=== PATIENT | female | born 1940 | race Caucasian/White ===

== ENCOUNTER → 2019-01-31 | Outpatient (CLI) | payer OTHER | LOC: CAT 11:42 | DX: Z13.6 Encounter for screening for cardiovascular disorders (principal); E78.00 Pure hypercholesterolemia, unspecified; Z82.49 Family history of ischemic heart disease and other diseases of the circulatory system ==

== ENCOUNTER → 2019-02-07 | Outpatient (CLI) | payer MEDICARE ==
[~2019-02-07] VITALS: Ht 190.5 cm; Wt 77.1 kg
[~2019-02-07] MED LIST: AMLODIPINE BESY10 MG PO; ASPIR 8181 MG PO; LISINOPRIL10 MG PO; LOVAZA1000 MG PO; PRAVACHOL40 MG PO; UNICOMPLEX M TA1 TA1 PO; VITAMIN B-12500 MCG PO; VITAMIN D2000 UNIT PO
[2019-02-07 11:41] VITALS: BP 163/73
== END | disposition home or self-care (01) ==
LOC: SPEC 11:02
DX: I70.1 Atherosclerosis of renal artery (principal); I12.9 Hypertensive chronic kidney disease with stage 1 through stage 4 chronic kidney disease, or unspecified chronic kidney disease; N18.9 Chronic kidney disease, unspecified; I73.9 Peripheral vascular disease, unspecified; E78.5 Hyperlipidemia, unspecified; Z79.82 Long term (current) use of aspirin; Z79.891 Long term (current) use of opiate analgesic; Z98.890 Other specified postprocedural states

== ENCOUNTER → 2019-12-30 | Outpatient (CLI) | payer MEDICARE | LOC: SJCVCIMAG 09:24 | DX: I49.9 Cardiac arrhythmia, unspecified (principal); N28.9 Disorder of kidney and ureter, unspecified; I70.1 Atherosclerosis of renal artery; R93.1 Abnormal findings on diagnostic imaging of heart and coronary circulation ==

== ENCOUNTER → 2020-01-27 | Outpatient (CLI) | payer MEDICARE | LOC: SJCVCIMAG 11:54 | PROVIDERS: ATTEND Internal Medicine Cardiovascular Disease | DX: I65.23 Occlusion and stenosis of bilateral carotid arteries (principal); E78.00 Pure hypercholesterolemia, unspecified; E78.5 Hyperlipidemia, unspecified; I10 Essential (primary) hypertension; R06.00 Dyspnea, unspecified ==

== ENCOUNTER → 2020-10-19 | Outpatient (CLI) | payer BC | LOC: SJCVCIMAG 09:14 | PROVIDERS: ATTEND Internal Medicine Cardiovascular Disease | DX: R94.31 Abnormal electrocardiogram [ECG] [EKG] (principal); R93.1 Abnormal findings on diagnostic imaging of heart and coronary circulation; I12.9 Hypertensive chronic kidney disease with stage 1 through stage 4 chronic kidney disease, or unspecified chronic kidney disease; N18.9 Chronic kidney disease, unspecified; E78.00 Pure hypercholesterolemia, unspecified; I70.1 Atherosclerosis of renal artery; I25.10 Atherosclerotic heart disease of native coronary artery without angina pectoris; I77.9 Disorder of arteries and arterioles, unspecified; I73.9 Peripheral vascular disease, unspecified; E78.5 Hyperlipidemia, unspecified; Z79.899 Other long term (current) drug therapy; Z88.1 Allergy status to other antibiotic agents ==